=== PATIENT | male | born 1940 | race Caucasian/White ===

== ENCOUNTER 2017-08-25 18:46 | Emergency (ER) | payer MEDICARE, MEDICAID ==
[~2017-08-25] VITALS: Ht 175.3 cm; Wt 77.1 kg
[2017-08-25] VITALS (8 sets, daily range): BP systolic 148–178; BP diastolic 76–109
[~2017-08-25 18:46] MED LIST: UNOBMED
[2017-08-25] MEDS ORDERED: Activated Charcoal 50gm/240ml Btl ORAL ONE (19:15)
[2017-08-25 19:33] LABS: BASOPHILS % (AUTO) 0.6 % (0.0-2.0); EOSINOPHILS % (AUTO) 3.5 % (0.0-3.0); HEMATOCRIT 38.2 % (42.0-52.0); HEMOGLOBIN 12.8 G/DL (14.2-18.0); LYMPHOCYTES % (AUTO) 28.5 % (20.0-45.0); MEAN CORPUSCULAR VOLUME 94 FL (80-99); MONOCYTES % (AUTO) 9.4 % (1.0-10.0); PLATELET COUNT 234 K/UL (150-450); RED BLOOD COUNT 4.07 M/UL (4.70-6.10); RED CELL DISTRIBUTION WIDTH 12.6 % (11.6-14.8); WHITE BLOOD COUNT 7.1 K/UL (4.8-10.8)
[2017-08-25 19:53] LABS: ALANINE AMINOTRANSFERASE 21 U/L (12-78); ALBUMIN 3.7 G/DL (3.4-5.0); ALBUMIN/GLOBULIN RATIO 1.1 (1.0-2.7); ALKALINE PHOSPHATASE 91 U/L (46-116); ANION GAP 14 mmol/L (5-15); ASPARTATE AMINO TRANSFERASE 17 U/L (15-37); BILIRUBIN,TOTAL 0.1 MG/DL (0.2-1.0); BLOOD UREA NITROGEN 20 mg/dL (7-18); CALCIUM 9.1 MG/DL (8.5-10.1); CARBON DIOXIDE 23 MMOL/L (21-32); CHLORIDE 106 MMOL/L (98-107); CREATININE 1.1 MG/DL (0.55-1.30); SODIUM 143 MMOL/L (136-145)
[2017-08-25 20:08] LABS: POTASSIUM 2.7 MMOL/L (3.5-5.1)
[2017-08-25] MEDS ORDERED: Potassium Chloride 40 MEQ in Sodium Chloride 500ML 550 ML IVPB ONE (20:15)
[2017-08-25] MEDS ORDERED: LORazepam Inj 2mg/ml 1ml IM ONE (23:00)
[2017-08-25] MEDS ORDERED: Haloperidol 5mg/ml Inj IM ONE (23:00)
[2017-08-26] VITALS (44 sets, daily range): BP systolic 104–211; BP diastolic 62–137
--- NOTE | 2017-08-26 05:55 | Emergency Room Report ---
History of Present Illness General Chief Complaint: Behavioral Complaint Present Illness Allergies: Coded Allergies: UNABLE TO ASSESS (Unverified , 08/25/17) Nursing Documentation-[facility] Past Medical History Deferred: Pt Cognitively Impaired Physical Exam Vital Signs Date Time Temp Pulse Resp B/P (MAP) Pulse Ox O2 Delivery O2 Flow Rate FiO2 08/25/17 18:42 97.9 116 18 156/114 95 Room Air Medical Decision Making Diagnostic Impression: Primary Impression: Behavioral change Additional Impression: Hypokalemia ER Course Patient signed out to me by Dr Resendiz at 10pm to recheck potassium See his note for complete HPI, exam Repeat K is now 3.9 after PO and IV K repletion Patient is on 5150 hold Asked clerks to begin process for PET eval/psych hospital transfer at 6am. Signed out to Dr Fernando to followup transfer Rhythm Strip Diag. Results EP Interpretation: yes Rate: 87 Rhythm: NSR, no PVC's, no ectopy Last Vital Signs Date Time Temp Pulse Resp B/P (MAP) Pulse Ox O2 Delivery O2 Flow Rate FiO2 08/26/17 05:00 94 20 99 Room Air 08/26/17 02:30 97.9 168/96 Status: improved Disposition: XFER TO PSYCH HOSP/UNIT Referrals: NOT CHOSEN [facility]/,REFERRING (PCP) IVETH OCONNOR M.D. Aug 26, 2017 05:55
[2017-08-26] MEDS ORDERED: LORazepam Inj 2mg/ml 1ml IV ONE (06:15)
[2017-08-26] MEDS ORDERED: Lisinopril 20mg tab ORAL ONE (07:30)
--- NOTE | 2017-08-26 09:56 | Emergency Room Report ---
History of Present Illness General Chief Complaint: Behavioral Complaint Source: Patient Present Illness HPI 77-year-old male presents to ED for evaluation. Patient brought in by EMS for evaluation. Patient is homeless and stated to EMS that he took 57 tablets of Valium. States he was trying to kill herself. Admits to alcohol use. Denies hearing voices. Denies abdominal pain nausea or vomiting. Patient will not provide a time as to when he took the medications. Denies chest pain or shortness of breath. No other aggravating or leading factors. Denies any other associated symptoms Allergies: Coded Allergies: UNABLE TO ASSESS (Unverified , 08/25/17) Patient History Past Medical History: none Past Surgical History: none Pertinent Family History: none Social History: Reports: alcohol use, Denies: smoking, drug use Immunizations: UTD Reviewed Nursing Documentation: PMH: Agreed, PSxH: Agreed Nursing Documentation-PMH Past Medical History Deferred: Pt Cognitively Impaired Review of Systems All Other Systems: negative except mentioned in HPI Physical Exam Vital Signs Date Time Temp Pulse Resp B/P (MAP) Pulse Ox O2 Delivery O2 Flow Rate FiO2 08/25/17 18:42 97.9 116 18 156/114 95 Room Air Sp02 EP Interpretation: reviewed, normal General Appearance: no apparent distress, alert, GCS 15, non-toxic Head: normocephalic, atraumatic Eyes: bilateral eye normal inspection, bilateral eye PERRL ENT: hearing grossly normal, normal pharynx, no angioedema, normal voice Neck: full range of motion, supple/symm/no masses Respiratory: chest non-tender, lungs clear, normal breath sounds, speaking full sentences Cardiovascular #1: regular rate, rhythm, no edema Cardiovascular #2: 2+ carotid (R), 2+ carotid (L), 2+ radial (R), 2+ radial (L) , 2+ dorsalis pedis (R), 2+ dorsalis pedis (L) Gastrointestinal: normal bowel sounds, non tender, soft, non-distended, no guarding, no rebound Rectal: deferred Genitourinary: normal inspection, no CVA tenderness Musculoskeletal: back normal, gait/station normal, normal range of motion, non- tender Neurologic: alert, oriented x3, responsive, motor strength/tone normal, sensory intact, speech normal Psychiatric: depressed affect, anxious Suicide Risk Assessment: Suicidal Ideation: Yes Had intent to initiate attempt: Yes Pt's plan for suicide attempt: Yes Has means to complete attempt: Yes Reflexes: 3+ bicep (R), 3+ bicep (L), 3+ tricep (R), 3+ tricep (L), 3+ knee (R) , 3+ knee (L) Skin: normal color, no rash, warm/dry, well hydrated Lymphatic: no adenopathy Medical Decision Making Diagnostic Impression: Primary Impression: Behavioral change Additional Impression: Hypokalemia ER Course Hospital Course 77-year-old male presents to ED for suicidal ideation. took multiple tablets of valium Differential diagnoses include: Major depressive disorder, unspecified psychosis , EtOH abuse, drug abuse Clinical course Patient placed on stretcher. On one to one observation. After initial history and physical I ordered labs, IVFs, NG tube, charcoal, U. tox Labs- K 2.9, aspirin/Tylenol levels normal, EtOH elevated, Utox + BZs Patient was in restraints however was was able to pull out his NG tube. Potassium was repleted through piggyback. Patient is not on 5150 hold however will require reassessment upon sobriety Patient was able to free of his restraints and ran through the emergency door in the back of the ED. patient was quickly restrained and subdued by [employer] and brought back to the ED Patient had multiple abrasions to the right side of face, patient did required sedation with Haldol Ativan. Wound irrigated and no signs of laceration to required repaired Patient is now on [address] out [address] Stuart to repeat potassium and if normal, to medically clear patient for psych placement i. I feel this is a highly complex case requiring extensive working including EKG/Rhythm strip, Xray/CT/US, Blood/urine lab work, repeat exams while in ED, and administration of strong opiates/narcotics for pain control, admission to hospital or close patient follow up. Labs Test 08/25/17 19:27 08/25/17 20:45 08/26/17 05:10 White Blood Count 7.1 K/UL (4.8-10.8) Red Blood Count 4.07 M/UL (4.70-6.10) Hemoglobin 12.8 G/DL (14.2-18.0) Hematocrit 38.2 % (42.0-52.0) Mean Corpuscular Volume 94 FL (80-99) Mean Corpuscular Hemoglobin 31.5 PG (27.0-31.0) Mean Corpuscular Hemoglobin Concent 33.6 G/DL (32.0-36.0) Red Cell Distribution Width 12.6 % (11.6-14.8) Platelet Count 234 K/UL (150-450) Mean Platelet Volume 7.1 FL (6.5-10.1) Neutrophils (%) (Auto) 58.0 % (45.0-75.0) Lymphocytes (%) (Auto) 28.5 % (20.0-45.0) Monocytes (%) (Auto) 9.4 % (1.0-10.0) Eosinophils (%) (Auto) 3.5 % (0.0-3.0) Basophils (%) (Auto) 0.6 % (0.0-2.0) Sodium Level 143 MMOL/L (136-145) Potassium Level 2.7 MMOL/L (3.5-5.1) 3.9 MMOL/L (3.5-5.1) Chloride Level 106 MMOL/L (98-107) Carbon Dioxide Level 23 MMOL/L (21-32) Anion Gap 14 mmol/L (5-15) Blood Urea Nitrogen 20 mg/dL (7-18) Creatinine 1.1 MG/DL (0.55-1.30) Estimat Glomerular Filtration Rate mL/min (>60) Glucose Level 99 MG/DL (74-106) Calcium Level 9.1 MG/DL (8.5-10.1) Total Bilirubin 0.1 MG/DL (0.2-1.0) Aspartate Amino Transf (AST/SGOT) 17 U/L (15-37) Alanine Aminotransferase (ALT/SGPT) 21 U/L (12-78) Alkaline Phosphatase 91 U/L (46-116) Total Protein 7.0 G/DL (6.4-8.2) Albumin 3.7 G/DL (3.4-5.0) Globulin 3.3 g/dL Albumin/Globulin Ratio 1.1 (1.0-2.7) Salicylates Level 2.8 ug/mL (2.8-20) Acetaminophen Level < 2 MCG/ML (10-30) Serum Alcohol 190 mg/dL Urine Opiates Screen Negative (NEGATIVE) Urine Barbiturates Screen Negative (NEGATIVE) Phencyclidine (PCP) Screen Negative (NEGATIVE) Urine Amphetamines Screen Negative (NEGATIVE) Urine Benzodiazepines Screen Positive (NEGATIVE) Urine Cocaine Screen Negative (NEGATIVE) Urine Marijuana (THC) Screen Negative (NEGATIVE) Last Vital Signs Date Time Temp Pulse Resp B/P (MAP) Pulse Ox O2 Delivery O2 Flow Rate FiO2 08/26/17 08:45 98 18 99 Room Air 08/26/17 07:33 176/109 08/26/17 02:30 97.9 Status: improved Disposition: XFER TO PSYCH HOSP/UNIT Condition: Serious Referrals: NOT CHOSEN AWAIS/,REFERRING (PCP) CAPRI HARRIS M.D. Aug 26, 2017 09:56
[2017-08-27] VITALS (7 sets, daily range): BP systolic 102–115; BP diastolic 63–70
[2017-08-27] MEDS ORDERED: BACITRACIN15 GM TOPIC (12:32)
--- NOTE | 2017-08-28 10:30 | Consultation ---
DATE OF CONSULTATION: 08/27/2017 NOTE: POOR AUDIO CONSULTING PHYSICIAN: Sonia Haro M.D. HISTORY OF PRESENT ILLNESS: The patient is a 77-year-old male with a history of alcohol dependence and anxiety, has been admitted through the emergency room. He stated that he has taken 57 tablets of Valium. The patient became belligerent, apparently wanted to leave the emergency room. He was intoxicated. They attempted to keep the patient in the emergency room when he tried to elope. The patient became agitated and was acting up. He was placed in four-point with self-restraints. He was given medications. During evaluation today, the patient was logical, however, hyperverbal and anxious. He stated he actually took two pills of Valium and has rest of the pills with him. He has a psychiatrist psychiatrist, who gives him 120 pills of Valium every month. The patient is also close to his son. The patient states he is not suicidal and wants to be discharged to his family. The patient did not endorse any depressive symptoms, however, appears to be hyperverbal and anxious. At the time of the evaluation, the patient was not an imminent danger to self or others, not gravely disabled. PAST PSYCHIATRIC HISTORY: He has a history of depression and anxiety. Denied any suicide attempts in the past. PAST MEDICAL HISTORY: Please see the nursing note. ALLERGIES: No known drug allergies. SUBSTANCE ABUSE HISTORY: Significant for alcohol abuse. MENTAL STATUS EXAMINATION: The patient is alert and oriented to times self, place, situation, and time. Mood is dysphoric and anxious. Affect is , congruent with mood. Thought process is linear. Thought content, no suicidal or homicidal ideations. No delusions. No AVH. Insight and judgment is fair. ASSESSMENT: AXIS I Anxiety disorder, rule out bipolar disorder, alcohol abuse. AXIS II Deferred. AXIS III As above. AXIS IV Low. AXIS V Global assessment of functioning is 50. PLAN: 1. We will contact the son. Also, notify the psychiatrist about the incident. 2. The patient will be discharged to follow up with a psychiatrist. Sonia Haro M.D. DR: Paola JOB#: [id number] CC:
== END 2017-08-27 12:45 | disposition home or self-care (01) ==
LOC: EDBD 18:46 → EMR 19:02
DX: F91.9 Conduct disorder, unspecified (principal); E87.6 Hypokalemia; F41.9 Anxiety disorder, unspecified; R45.851 Suicidal ideations; F10.10 Alcohol abuse, uncomplicated
CPT/HCPCS: 36415; 80053; 80307; 84132; 85025; 96361; 96365; 96366; 96372; 96375; 96376; 99285; G0480; J0360; J1630; J3480; J7040; 80329; J8499

== ENCOUNTER 2019-10-05 15:38 | Emergency (ER) | payer MEDICARE, MEDICAID ==
[~2019-10-05] VITALS: Ht 172.7 cm; Wt 72.6 kg
[~2019-10-05 15:38] MED LIST changes: +BACITRACIN15 GM TOPIC
--- NOTE | 2019-10-05 15:55 | NUR ---
ED Nurse Note: Pt brought into ED by ambulance for possible overdose. According to ambulance, karis walters saw him running away with whole bottles of dramamine. Pt states he only took 1 aspirin and 2 dramamine. Pt is alert and orientedx4, slurred speech. Pt is set up on monitor.
[2019-10-05 16:15] VITALS: BP 127/76
--- NOTE | 2019-10-05 16:26 | NUR ---
ED Nurse Note: MD notified R knee pain and RR 38.
[2019-10-05 16:52] LABS: BASOPHILS % (AUTO) 0.8 % (0.0-2.0); EOSINOPHILS % (AUTO) 1.2 % (0.0-3.0); HEMATOCRIT 33.1 % (42.0-52.0); HEMOGLOBIN 10.6 G/DL (14.2-18.0); LYMPHOCYTES % (AUTO) 29.8 % (20.0-45.0); MEAN CORPUSCULAR VOLUME 86 FL (80-99); MONOCYTES % (AUTO) 5.4 % (1.0-10.0); NEUTROPHILS % (AUTO) 62.7 % (45.0-75.0); PLATELET COUNT 390 K/UL (150-450); RED BLOOD COUNT 3.84 M/UL (4.70-6.10); RED CELL DISTRIBUTION WIDTH 17.1 % (11.6-14.8); WHITE BLOOD COUNT 8.9 K/UL (4.8-10.8)
[2019-10-05 17:08] LABS: ANION GAP 10 mmol/L (5-15); BLOOD UREA NITROGEN 31 mg/dL (7-18); CALCIUM 9.5 MG/DL (8.5-10.1); CARBON DIOXIDE 26 MMOL/L (21-32); CHLORIDE 102 MMOL/L (98-107); CREATININE 1.3 MG/DL (0.55-1.30); POTASSIUM 3.9 MMOL/L (3.5-5.1); SODIUM 138 MMOL/L (136-145)
[2019-10-05 17:11] LABS: ALANINE AMINOTRANSFERASE 85 U/L (12-78); ALBUMIN 3.2 G/DL (3.4-5.0); ALBUMIN/GLOBULIN RATIO 0.8 (1.0-2.7); ALKALINE PHOSPHATASE 130 U/L (46-116); ASPARTATE AMINO TRANSFERASE 58 U/L (15-37); BILIRUBIN,TOTAL 0.4 MG/DL (0.2-1.0)
[2019-10-05 18:45] VITALS: BP 159/107
--- NOTE | 2019-10-05 18:45 | NUR ---
ER DISCHARGE NOTE: Patient is cleared to be discharged per ERMD, pt is aox4, on room air, with BP 159/106 MD valeria green discharge. pt was given dc and prescription instructions, pt was able to verbalize understanding, pt id band and iv site removed without complications. pt is able to ambulate with steady gait. pt took all belongings. Ambulance personnel taking pt back to assisted living.
--- NOTE | 2019-10-05 19:19 | Emergency Room Report ---
History of Present Illness General Chief Complaint: Overdose Source: Patient, EMS Present Illness HPI 79-year-old male presents ED for possible overdose. Brought in by EMS from residential facility. EMS states that patient took 2 tablets of Dramamine and 1 tablet of aspirin. Happened about 30 minutes ago. States that he was feeling dizzy states that the Dramamine. States he was feeling light headaches when he took the aspirin. States he feels better now. Was not trying to hurt himself. Denies any headache or dizziness at this time. Denies SI or HI. Denies nausea or vomiting. Denies chest pain or shortness of breath. No other aggravating relieving factors. Denies any other associated symptoms COVID-19 risk:Travel to affect: No Allergies: Coded Allergies: ACETAMINOPHEN (Verified Allergy, Unknown, 10/05/19) IBUPROFEN (Verified Allergy, Unknown, 10/05/19) MIDAZOLAM (Verified Allergy, Unknown, 10/05/19) TRAMADOL (Verified Allergy, Unknown, 10/05/19) Patient History Past Medical History: none Past Surgical History: none Pertinent Family History: none Social History: Denies: smoking, alcohol use, drug use Immunizations: UTD Reviewed Nursing Documentation: PMH: Agreed; PSxH: Agreed Review of Systems All Other Systems: negative except mentioned in HPI Physical Exam Vital Signs Date Time Temp Pulse Resp B/P (MAP) Pulse Ox O2 Delivery O2 Flow Rate FiO2 10/05/19 15:42 97.9 86 15 130/77 (94) 99 Room Air 10/05/19 16:15 100 Sp02 EP Interpretation: reviewed, normal General Appearance: no apparent distress, alert, GCS 15, non-toxic Head: normocephalic, atraumatic Eyes: bilateral eye normal inspection, bilateral eye PERRL ENT: hearing grossly normal, normal pharynx, no angioedema, normal voice Neck: full range of motion, supple/symm/no masses Respiratory: chest non-tender, lungs clear, normal breath sounds, speaking full sentences Cardiovascular #1: regular rate, rhythm, no edema Cardiovascular #2: 2+ carotid (R), 2+ carotid (L), 2+ radial (R), 2+ radial (L) , 2+ dorsalis pedis (R), 2+ dorsalis pedis (L) Gastrointestinal: normal bowel sounds, non tender, soft, non-distended, no guarding, no rebound Rectal: deferred Genitourinary: normal inspection, no CVA tenderness Musculoskeletal: back normal, normal range of motion, gait/station normal, non- tender Neurologic: alert, motor strength/tone normal, oriented x3, sensory intact, responsive, speech normal Psychiatric: judgement/insight normal, memory normal, mood/affect normal, no suicidal/homicidal ideation Reflexes: 3+ bicep (R), 3+ bicep (L), 3+ tricep (R), 3+ tricep (L), 3+ knee (R) , 3+ knee (L) Lymphatic: no adenopathy Medical Decision Making Diagnostic Impression: Primary Impression: Drug overdose Qualified Codes: T50.901A - Poisoning by unspecified drugs, medicaments and biological substances, accidental (unintentional), initial encounter ER Course Hospital Course 79 yo M presents s/p possible overdose. took dramamine and aspirin. Differential diagnoses include: Psychosis, EtOH, drug abuse Clinical course patient placed on stretcher. On marine electronics technician. After initial history and physical ordered labs, IV fluids, EKG Labs reviewed-electrolytes okay, no leukocytosis, hemoglobin/hematocrit stable, tox panel negative EKG - NSR, some PVCs, no acute ischemic changes interpreted by me Observed on marine electronics technician. Resting comfortably. Awake alert oriented x3 the whole time. Somewhat hypertensive. Improved with hydralazine. Discussed with PMD Dr. Costello. He agrees the patient can be safely discharged back to facility. i. I feel this is a highly complex case requiring extensive working including EKG/Rhythm strip, Xray/CT/US, Blood/urine lab work, repeat exams while in ED, and administration of strong opiates/narcotics for pain control, admission to hospital or close patient follow up. Diagnosis -drug overdose Stable and discharged to SNF. Followup with PMD. Return to ED if symptoms recur or worsen Labs Test 10/05/19 16:10 White Blood Count 8.9 K/UL (4.8-10.8) Red Blood Count 3.84 M/UL (4.70-6.10) Hemoglobin 10.6 G/DL (14.2-18.0) Hematocrit 33.1 % (42.0-52.0) Mean Corpuscular Volume 86 FL (80-99) Mean Corpuscular Hemoglobin 27.6 PG (27.0-31.0) Mean Corpuscular Hemoglobin Concent 32.0 G/DL (32.0-36.0) Red Cell Distribution Width 17.1 % (11.6-14.8) Platelet Count 390 K/UL (150-450) Mean Platelet Volume 5.9 FL (6.5-10.1) Neutrophils (%) (Auto) 62.7 % (45.0-75.0) Lymphocytes (%) (Auto) 29.8 % (20.0-45.0) Monocytes (%) (Auto) 5.4 % (1.0-10.0) Eosinophils (%) (Auto) 1.2 % (0.0-3.0) Basophils (%) (Auto) 0.8 % (0.0-2.0) Sodium Level 138 MMOL/L (136-145) Potassium Level 3.9 MMOL/L (3.5-5.1) Chloride Level 102 MMOL/L (98-107) Carbon Dioxide Level 26 MMOL/L (21-32) Anion Gap 10 mmol/L (5-15) Blood Urea Nitrogen 31 mg/dL (7-18) Creatinine 1.3 MG/DL (0.55-1.30) Estimat Glomerular Filtration Rate 53.4 mL/min (>60) Glucose Level 108 MG/DL (74-106) Calcium Level 9.5 MG/DL (8.5-10.1) Total Bilirubin 0.4 MG/DL (0.2-1.0) Aspartate Amino Transf (AST/SGOT) 58 U/L (15-37) Alanine Aminotransferase (ALT/SGPT) 85 U/L (12-78) Alkaline Phosphatase 130 U/L (46-116) Total Protein 7.3 G/DL (6.4-8.2) Albumin 3.2 G/DL (3.4-5.0) Globulin 4.1 g/dL Albumin/Globulin Ratio 0.8 (1.0-2.7) Salicylates Level 0.8 ug/mL (2.8-20) Urine Opiates Screen Negative (NEGATIVE) Acetaminophen Level < 2 MCG/ML (10-30) Urine Barbiturates Screen Negative (NEGATIVE) Phencyclidine (PCP) Screen Negative (NEGATIVE) Urine Amphetamines Screen Negative (NEGATIVE) Urine Benzodiazepines Screen Negative (NEGATIVE) Urine Cocaine Screen Negative (NEGATIVE) Urine Marijuana (THC) Screen Negative (NEGATIVE) Serum Alcohol < 3 mg/dL EKG Diagnostic Results Rate: normal Rhythm: NSR ST Segments: no acute changes ASA given to the pt in ED: No Rhythm Strip Diag. Results EP Interpretation: yes Rhythm: NSR, other - PVCs Last Vital Signs Date Time Temp Pulse Resp B/P (MAP) Pulse Ox O2 Delivery O2 Flow Rate FiO2 10/05/19 18:33 164/119 10/05/19 16:15 89 18 Room Air 100 10/05/19 16:15 97.9 98 Status: improved Disposition: XFER SNF Condition: Stable Referrals: Andrade Costello MD (PCP) Patient Instructions: Basics of Medicine Management Chuck Resendiz MD Oct 05, 2019 19:19
== END 2019-10-05 18:45 ==
LOC: EDUNIT# 15:38 → EDBD 15:38 → EMR 17:45
DX: T45.0X1A Poisoning by antiallergic and antiemetic drugs, accidental (unintentional), initial encounter (principal); X58.XXXA Exposure to other specified factors, initial encounter; Y92.9 Unspecified place or not applicable; Z88.6 Allergy status to analgesic agent
CPT/HCPCS: 36415; 80053; 80307; 85025; 93005; 96361; 96374; 99284; G0480; J0360; J7030